=== PATIENT | female | born 1960 | race Caucasian/White ===

== ENCOUNTER 2016-05-09 13:16 | Emergency (ER) | payer OTHER ==
[2016-05-09 13:40] VITALS: BP 153/73
--- NOTE | 2016-05-09 13:57 | UC ---
Respiratory Complaint HPI - HPI Summary HPI Summary: 55 y/o FEMALE WITH HX OF COPD, ONE WEEK HX OF COUGH , NASAL CONGESTION, SOB, NO FEVER, NO CHILLS - History of Current Complaint Chief Complaint: UCRespiratory Stated Complaint: SOB Time Seen by Provider: 05/09/16 13:24 Hx Obtained From: Patient Onset/Duration: Gradual Onset, Lasting Days - 7, Still Present Timing: Constant Severity Initially: Moderate Severity Currently: Moderate Character: Sputum Description: - GREEN Aggravating Factors: Exertion, Deep Breaths Alleviating Factors: Nothing Associated Signs And Symptoms: Positive: Dyspnea, Pleuritic Chest Pain, Wheezing , URI, Nasal Congestion. Negative: Fever, Chills, Hemoptysis, Dizziness, Calf Pain, Calf Swelling, Edema, Sinus Discomfort - Allergies/Home Medications Allergies/Adverse Reactions: Allergies Allergy/AdvReac Type Severity Reaction Status Date / Time Penicillins Allergy Severe Hives Verified 05/09/16 13:33 Home Medications: Home Medications Albuterol HFA INHALER* [Ventolin HFA Inhaler*] 1 - 2 puff INH Q4H PRN 05/09/16 [ History Confirmed 05/09/16] PMH/Surg Hx/FS Hx/Imm Hx Previously Healthy: No Cardiovascular History Of: Reports: Hypertension Respiratory History Of: Reports: COPD - Surgical History Surgical History: Yes Surgery Procedure, Year, and Place: Tonsillectomy - Family History Known Family History: Negative: Diabetes - Social History Alcohol Use: None Substance Use Type: None Smoking Status (MU): Heavy Every Day Tobacco Smoker Type: Cigarettes Amount Used/How Often: 1/2 PPD Have You Smoked in the Last Year: Yes Household Exposure Type: Cigarettes Review of Systems Constitutional: Fatigue Skin: Negative Eyes: Negative ENT: Nasal Discharge Respiratory: Shortness Of Breath, Cough Cardiovascular: Chest Pain Gastrointestinal: Negative All Other Systems Reviewed And Are Negative: Yes Physical Exam Triage Information Reviewed: Yes Appearance: Ill-Appearing, Thin Vital Signs: Initial Vital Signs Temp 99.3 F 05/09/16 13:35 Pulse 93 05/09/16 13:35 Resp 22 05/09/16 13:35 BP 153/73 05/09/16 13:35 Pulse Ox 98 05/09/16 13:35 Vital Signs Reviewed: Yes Eye Exam: Normal Eyes: Positive: Conjunctiva Clear ENT: Positive: Normal ENT inspection, Hearing grossly normal, Pharynx normal. Negative: Nasal congestion, Nasal drainage Neck exam: Normal Neck: Positive: Supple, Nontender, No Lymphadenopathy Respiratory: Positive: Respiratory distress, Decreased breath sounds Cardiovascular: Positive: RRR Abdominal Exam: Normal Abdomen Description: Positive: Nontender, Soft Bowel Sounds: Positive: Present UC Diagnostic Evaluation - Laboratory O2 Sat by Pulse Oximetry: 98 Respiratory Course/Dx - Differential Dx/Diagnosis Provider Diagnoses: BRONCHITIS. COPD EXACERBATION Discharge - Discharge Plan Condition: Stable Disposition: HOME Prescriptions: Albuterol HFA INHALER* [Ventolin HFA Inhaler*] 2 puff INH Q4H PRN #1 mdi PRN Reason: Wheezing DOXYcycline CAP(*) [DOXYcycline 100MG CAP(*)] 100 mg PO BID #20 cap predniSONE TAB* [Deltasone TAB*] 40 mg PO DAILY #14 tab Patient Education Materials: COPD (Chronic Obstructive Pulmonary Disease) (ED) Referrals: TYLER Lara [Primary Care Provider] - 5 Days
--- NOTE | 2016-05-09 14:38 | RAD ---
INDICATION: Cough. Short of breath COMPARISON: September 04, 2014 TECHNIQUE: PA and lateral dual-energy views were obtained. FINDINGS: Bones/Soft Tissues: There are no acute bony findings. Cardiomediastinal: The cardiomediastinal silhouette is normal. Lungs: There are no infiltrates. There is hyperinflation Pleura: There are no pleural effusions. Other: None IMPRESSION: HYPERINFLATION. NO ACTIVE DISEASE.
== END 2016-05-09 14:44 | disposition home or self-care (01) ==
LOC: UCCORT 13:16
DX: J40 Bronchitis, not specified as acute or chronic (principal); J44.1 Chronic obstructive pulmonary disease with (acute) exacerbation; F17.210 Nicotine dependence, cigarettes, uncomplicated; Z88.0 Allergy status to penicillin
CPT/HCPCS: 71020; 93005; 99212; G0463